=== PATIENT | male | born 1985 | race Caucasian/White ===

== ENCOUNTER 2022-11-26 08:05 | Emergency (ER) | payer BC, SELFPAY ==
[2022-11-26 08:44] VITALS: BP 135/95; PULSE 75; RESP 18; TEMP 36.6; O2SAT 100
--- NOTE | 2022-11-26 09:14 | ED.BACK ---
HPI - Back Pain/Injury General Chief Complaint: Back Pain/Injury Stated Complaint: back and lower extremity pain Time Seen by Provider: 11/26/22 08:48 Source: patient and RN notes reviewed Mode of arrival: ambulatory Limitations: no limitations History of Present Illness HPI Narrative: Patient presents today complaining of left back pain that radiates down his left leg intermittently x1 year, worse over the last 5 days. He also reports some tingling to the left lower leg and ankle that has also been present intermittently over the past year. Denies any recent trauma, injury, heavy lifting, although he does have a strenuous job at work nothing has been more strenuous than normal. He describes the pain as dull and throbbing. He currently rates his pain 1/10 which increases with standing and increases with sitting. He has been taking ibuprofen with some relief. Denies any history of back surgeries. Denies loss of bowel or bladder control. Related Data Allergies Allergy/AdvReac Type Severity Reaction Status Date / Time No Known Allergies Allergy Verified 11/26/22 08:54 Review of Systems Review of Systems: CONSTITUTIONAL: Denies body aches, fever, chills, or sweats. EYES: Denies visual changes, redness, or discharge. ENT: Denies rhinorrhea, congestion, sore throat, or otalgia. CARDIOVASCULAR: Denies chest pain, palpitations, or edema. RESPIRATORY: Denies cough or dyspnea. GASTROINTESTINAL: Denies abdominal pain, nausea, vomiting, or diarrhea. GENITOURINARY: Denies dysuria or hematuria. SKIN: Denies rash, itching, or wounds. MUSCULOSKELETAL: + left back pain NEUROLOGIC: Denies headache, numbness, or weakness.+ tingling of left lower leg PSYCH: Denies depression or anxiety. PMFSH Comments At time of signature, I have reviewed and agree with nursing past medical, surgical, social and family history unless otherwise noted. Please see nursing chart for further information. There is no relevant family history pertinent to the presenting complaint Exam Narrative: GENERAL: Well-appearing, well-nourished, and in no acute distress. HEAD: Normocephalic, atraumatic. EYES: EOMI. No redness or drainage. Conjunctivae normal. ENT: Mucous membranes pink and moist. NECK: Normal AROM. CHEST: No respiratory distress. MUSCULOSKELETAL: No bony tenderness of the spine. Left lower lumbar mild tenderness that extends to the left SI joint. No tenderness of the leg. Distal sensation intact. Saddle sensation intact. Capillary refill normal. Dorsiflexion and plantar flexion equal and strong against resistance. EXTREMITIES: Normal range of motion. No edema. SKIN: Warm, dry, no rash. Capillary refill normal. Normal skin turgor. NEURO: No focal deficits. Alert and oriented x3. Gait steady. PSYCH: Normal affect. No signs of depression or anxiety. Course Course Level of Care: Express Care Visit Vital Signs Vital signs: Vital Signs Temperature 97.9 F 11/26/22 08:44 Pulse Rate 75 11/26/22 08:44 Respiratory Rate 18 11/26/22 08:44 Blood Pressure 135/95 H 11/26/22 08:44 Pulse Oximetry 100 11/26/22 08:44 Oxygen Delivery Room Air 11/26/22 08:44 Temperature 97.9 F 11/26/22 08:44 Pulse Rate 75 11/26/22 08:44 Respiratory Rate 18 11/26/22 08:44 Blood Pressure 135/95 H 11/26/22 08:44 Pulse Oximetry 100 11/26/22 08:44 Oxygen Delivery Room Air 11/26/22 08:44 Reviewed. Pt has been instructed to follow up with his PCP regarding his elevated blood pressure today. MDM - Back Pain/Injury MDM Narrative Medical decision making narrative: Symptoms likely due to sciatica. Will treat with prednisone and Flexeril. Patient agrees with plan. Anticipatory guidance given. No testing indicated at this time. Differential Diagnosis Differential diagnosis: Likely lumbar radiculopathy, sciatica and strain of lumbar region Critical Care Time Critical Care Time Critical Care Time: No Discharge Plan
== END 2022-11-26 09:20 | disposition home or self-care (01) ==
PROVIDERS: Emergency Provider Nurse Practitioner
DX: M54.42 Lumbago with sciatica, left side (principal)
CPT/HCPCS: 99213; G0463

== ENCOUNTER 2025-02-16 08:03 | Emergency (ER) | payer BC, SELFPAY ==
--- NOTE | 2025-02-16 08:04 | ED.URI ---
HPI - URI/Sore Throat General Chief Complaint: Upper Respiratory Infection Stated Complaint: sore throat Time Seen by Provider: 02/16/25 08:04 Source: patient Mode of arrival: ambulatory Limitations: no limitations History of Present Illness HPI Narrative: Janes is a 39 year old female patient presenting to clinic today with c/o sore throat, headache, feeling feverish, and nausea x3 days. He reports tactile fever but has not checked his temp. Has used madrigal cough drops/lozenges. Rates pain 10/10 when swallowing. No known strep or mono exposure. Related Data Allergies Allergy/AdvReac Type Severity Reaction Status Date / Time No Known Allergies Allergy Verified 02/16/25 08:12 Review of Systems Review of Systems: Pertinent positives per HPI. Patient denies any rash,visual changes, dizziness, cough, shortness of breath, chest pain, palpitations, vomiting, diarrhea, constipation, abdominal pain, or any urinary issues. PMFSH Comments At the time of my signature, I reviewed and agree with the nursing past medical, surgical, social, and family history. There is no relevant family history pertinent to the patient complaint. Exam Narrative: General: Well-developed, well nourished, in no apparent distress Head: Normocephalic, atraumatic Eyes: Pupils equally round and reactive to light bilaterally, EOM intact, sclera and conjunctive clear, no discharge, lids normal Ears: TMs intact and clear, ear canals clear, no drainage, grossly hearing normal. Nose: Nares patent, no discharge, no inflammation, no sinus tenderness. Mouth: Oral pharynx red with 3+ tonsils without lesions or masses, good dentition, MMM. Neck: Supple, trachea midline, enlargement of anterior cervical nodes, no thyroid masses or goiter palpable. Cardio: Regular rate and rhythm, s1 and s2 normal, no murmur appreciated. Resp: Clear to auscultation bilaterally, no rhonchi, rales, wheezing or rubs Course Course Emergency Course: Portions of this record may have been created with voice recognition software. Level of Care: Express Care Visit Vital Signs Vital signs: Vital Signs Temperature 36.6 C 02/16/25 08:12 Pulse Rate 102 H 02/16/25 08:12 Respiratory Rate 18 02/16/25 08:12 Blood Pressure 142/92 H 02/16/25 08:12 Pulse Oximetry 98 02/16/25 08:12 Oxygen Delivery Room Air 02/16/25 08:12 Temperature 36.6 C 02/16/25 08:12 Pulse Rate 102 H 02/16/25 08:12 Respiratory Rate 18 02/16/25 08:12 Blood Pressure 142/92 H 02/16/25 08:12 Pulse Oximetry 98 02/16/25 08:12 Oxygen Delivery Room Air 02/16/25 08:12 Vital signs reviewed MDM - URI/Sore Throat MDM Narrative Medical decision making narrative: At the time of visit patient is resting comfortably on the exam table. Patient appears to be nontoxic. C/o sore throat, headache, feeling feverish, and nausea x3 days. He reports tactile fever but has not checked his temp. Has used madrigal cough drops/lozenges. Rates pain 10/10 when swallowing. No known strep or mono exposure. On exam patient has bilateral TMs intact and clear, no nasal drainage, no anterior turbinate inflammation, oral pharynx red with bilateral 3+ tonsils without exudate, anterior cervical lymphadenopathy bilaterally, lung sounds are clear, heart rates regular rate and rhythm. Labs: Strep test was positive in the clinic today Plan: I suspect patient has strep pharyngitis. Prescription for Augmentin was sent to the pharmacy. Supportive measures were discussed with the patient and they voiced understanding discharge instructions and agrees to treatment plan. Return precautions reviewed Differential Diagnosis Differential diagnosis: Likely upper respiratory infection, otitis media, sinusitis, viral infection, bronchitis, influenza, pharyngitis and other (COVID) Discharge Plan Discharge Clinical Impression: Acute streptococcal pharyngitis Patient Disposition: Home Condition: Stable Instructions: Antibiotic Form, Strep Throat (ED) Additional Instructions: Strep test is positive in the clinic today. Change your toothbrush in 24 hours after initiation of the antibiotics Take prescription medications only as prescribed-Augmentin Increase fluids and stay well hydrated May take Tylenol or motrin as directed on bottle for pain/fever Cepacol spray, cough drops, throat lozenges, warm tea with honey/lemon, gargle salt water to soothe throat Clear liquids x 24 hours then advance as tolerated for nausea/vomiting Go to the ED if you develop a worsening in your condition- high fever not controlled by Tylenol or Motrin, dehydration, weakness, lethargy, shortness of breath, or chest pain. Follow up with your PCP in 3-5 days if symptoms persist. Patient Language: [place] Prescriptions: New amoxicillin-pot clavulanate 875-125 mg tablet 1 tablet PO Q12H 10 Days Qty: 20 0RF Follow-up/Referrals: UNKNOWN,DOCTOR [Primary Care Provider] Time of Disposition: 08:23 Quality NIHSS Nursing Documentation ED NIHSS nursing documentation: reviewed/agree
[2025-02-16 08:12] VITALS: BP 142/92; PULSE 102; RESP 18; TEMP 36.6; O2SAT 98
[2025-02-17 11:52] LABS: EDSTREPNEGPOS1 Positive (Negative)
== END 2025-02-16 08:26 | disposition home or self-care (01) ==
PROVIDERS: Emergency Provider Nurse Practitioner Family
DX: J02.0 Streptococcal pharyngitis (principal)
CPT/HCPCS: 87880; 99213; G0463